=== PATIENT | female | born 1970 | race Caucasian/White ===

== ENCOUNTER → 2021-05-13 | Outpatient (CLI) | payer OTHER ==
[2016-03-14 21:15] VITALS: BP 134/73
[~2021-05-13] MED LIST: CRESTOR10 MG PO; LEVO25TA55 PO; MAGN400C PO; MONT10TA80 PO
--- NOTE | 2021-05-14 13:15 | CARD ---
MR#: [id number] Date of Study: 05/13/2021 Ordering Physician: ARIADNA HIDALGO, Referring Physician: ARIADNA HIDALGO, Tech: Deangelo Johns [facility] APPROVED REPORT EXAM: Two-dimensional and M-mode echocardiogram with Doppler and color Doppler. Other Information Quality : AverageAverageHR: 70bpm Rhythm : NSR INDICATION Palpitations PSVT RISK FACTORS Obesity 2D DIMENSIONS Left Atrium(2D)3.9 (1.6-4.0cm)IVSd0.9 (0.7-1.1cm) Aortic Root(2D)3.1 (2.0-3.7cm)LVDd4.7 (3.9-5.9cm) LVOT Diameter2.0 (1.8-2.4cm)PWd0.9 (0.7-1.1cm) LVDs2.6 (2.5-4.0cm)FS (%) 46.0 % SV80.8 ml Aortic Valve AoV Peak Kin.125.0cm/sAoV VTI28.5cm AO Peak GR.6.2mmHgLVOT Peak Kin.103.9cm/s LVOT VTI 20.69cmAO Mean GR.4mmHg KHANG (VMAX)2.60dm2SFD (VTI)2.34cm2 Mitral Valve MV E Itwaaglc10.2cm/sMV E Peak Gr.6mmHg MV DECEL [id number] A Xfvwazpx69.5cm/s MV E Mean Gr.2mmHgE/A Ratio1.3 Pulmonary Valve PV Peak Mssxaswd63.3cm/sPV Peak Grad.3mmHg Tricuspid Valve TR P. Gtfwxehh879tb/sTR Peak Gr.24mmHg Pulmonary Vein S1 Nebqnnpn69.5cm/sD2 Nizkcjso54.3cm/s LEFT VENTRICLE The left ventricle is normal size. There is normal left ventricular wall thickness. The left ventricu lar systolic function is normal and the ejection fraction is within normal range. LV ejection fractio n of 55 to 60%. There is normal LV segmental wall motion. The left ventricular diastolic function and filling is normal for age. No left ventricle thrombus noted on this study. There is no ventricular s eptal defect visualized. There is no left ventricular aneurysm. There is no mass noted in the left ve ntricle. RIGHT VENTRICLE The right ventricle is normal size. There is normal right ventricular wall thickness. The right ventr icular systolic function is normal. ATRIA The left atrium size is normal. The right atrium size is normal. The interatrial septum is intact wit h no evidence for an atrial septal defect or patent foramen ovale as noted on 2-D or Doppler imaging. AORTIC VALVE The aortic valve is normal in structure and function. Doppler and Color Flow revealed no significant aortic regurgitation. There is no significant aortic valvular stenosis. There is no aortic valvular v egetation. MITRAL VALVE The mitral valve is mildly thickened. There is no evidence of mitral valve prolapse. There is no mitr al valve stenosis. Doppler and Color Flow revealed no mitral valve regurgitation noted. TRICUSPID VALVE The tricuspid valve is normal in structure and function. Doppler and Color Flow revealed trace tricus pid regurgitation. There is no tricuspid valve prolapse or vegetation. There is no tricuspid valve st enosis. PULMONIC VALVE The pulmonary valve is normal in structure and function. Doppler and Color Flow revealed no pulmonic valvular regurgitation. There is no pulmonic valvular stenosis. GREAT VESSELS The aortic root is normal in size. The ascending aorta is normal in size. The pulmonary artery is nor mal. The IVC is normal in size and collapses >50% with inspiration. PERICARDIAL EFFUSION There is no pleural effusion. There is no evidence of significant pericardial effusion. Critical Notification Critical Value: No <Conclusion> The left ventricular systolic function is normal and the ejection fraction is within normal range. LV ejection fraction of 55 to 60%. There is normal LV segmental wall motion. Doppler and Color Flow revealed no significant aortic regurgitation. There is no significant aortic valvular stenosis. Doppler and Color Flow revealed no mitral valve regurgitation noted. Doppler and Color Flow revealed trace tricuspid regurgitation. Signed by : Carlos Manuel Escobar MD Electronically Approved : 05/14/2021 13:14:17
== END ==
LOC: ECHO 09:00
PROVIDERS: ATTEND Internal Medicine Cardiovascular Disease
DX: I34.0 Nonrheumatic mitral (valve) insufficiency (principal); I47.1 Supraventricular tachycardia; R00.2 Palpitations
CPT/HCPCS: 93306

== ENCOUNTER 2021-06-08 21:13 | Emergency (ER) | payer OTHER ==
[~2021-06-08] VITALS: Ht 167.6 cm; Wt 86.5 kg
--- NOTE | 2021-06-08 21:35 | PHYS DOC ---
Past History Past Medical History: Asthma, Hypothyroid Additional Past Medical Histor: SVT (LO BRAND APRN) Past Surgical History: Appendectomy, , Hysterectomy, Other (LO BRAND APRN) Alcohol Use: None Drug Use: None (LO BRAND APRN) General Adult EDM: Chief Complaint: SYNCOPE HPI: HPI: Patient is a 50-year-old female that presents today via [facility] after syncopal episode at home. Patient states she was putting up the [employer] tree and she said she started having her normal tachyarrhythmia, she then said she felt the room go black and when she woke up she was on the ground. Per EMS this was witnessed by the boyfriend, she states this has been happening on and off for couple years has only gotten to the point where she passes out in the last 3 or 4 months. Patient states she sees Dr. Albarran for her SVT about 1 month ago she states she had another syncopal episode she was switched to metoprolol by Dr. Albarran, she does have an appointment with Dr. Albarran tomorrow June, she also had an echocardiogram done recently and read by Dr. Dunham. Patient currently is in a c-collar, patient states that she has neck pain and head pain from her fall. (LO BRAND APRN) Review of Systems: Review of Systems: Constitutional: Denies fever or chills Eyes: Denies change in visual acuity HENT: Denies nasal congestion or sore throat Respiratory: Denies cough or shortness of breath Cardiovascular: Syncopal episode GI: Denies abdominal pain, nausea, vomiting, bloody stools or diarrhea : Denies dysuria Musculoskeletal: Neck pain Integument: Denies rash Neurologic: Denies headache, focal weakness or sensory changes Endocrine: Denies polyuria or polydipsia Lymphatic: Denies swollen glands Psychiatric: Denies depression or anxiety (LO BRAND APRN) Allergies: Allergies: Allergies Coded Allergies Type Severity Reaction Last Updated Verified Iodine and Iodide Containing Produc Allergy Intermediate Hives 06/01/14 No morphine Allergy Intermediate Hives 06/01/14 No nalbuphine Allergy Intermediate Hives 06/01/14 No (LO BRAND APRN) Physical Exam: PE: Constitutional: Well developed, well nourished, no acute distress, non-toxic appearance. [] HENT: Normocephalic, atraumatic, bilateral external ears normal, oropharynx moist, no oral exudates, nose normal. [] Eyes: PERRLA, EOMI, conjunctiva normal, no discharge. [] Neck: Normal range of motion, no tenderness, supple, no stridor, no midline tenderness noted with palpation c-collar was placed back on [] Cardiovascular:Heart rate regular rhythm, no murmur [] Lungs & Thorax: Bilateral breath sounds clear to auscultation [] Abdomen: Bowel sounds normal, soft, no tenderness, no masses, no pulsatile masses. [] Skin: Warm, dry, no erythema, no rash. [] Back: No tenderness, no CVA tenderness. [] Extremities: No tenderness, no cyanosis, no clubbing, ROM intact, no edema. [] Neurologic: Alert and oriented X 3, normal motor function, normal sensory function, no focal deficits noted. [] Psychologic: Affect normal, judgement normal, mood normal. [] (LO BRAND CUSTOMS COMPLIANCE SPECIALIST) EKG: EKG: EKG done at [address] Dean at 2136 no STEMI interpretation sinus rhythm at a rate of 76 [place] interval 156 ms with a QT interval of 459 ms [] (LO BRAND APRN) Radiology/Procedures: Radiology/Procedures: [] (LO BRAND APRN) Heart Score: C/O Chest Pain: N/A Risk Factors: Risk Factors: DM, Current or recent (<one month) smoker, HTN, HLP, family history of CAD, obesity. Risk Scores: Score 0 - 3: 2.5% MACE over next 6 weeks - Discharge Home Score 4 - 6: 20.3% MACE over next 6 weeks - Admit for Clinical Observation Score 7 - 10: 72.7% MACE over next 6 weeks - Early Invasive Strategies (LO BRAND APRN) C/O Chest Pain: No (EDDIE DEAN MD) Course & Med Decision Making: Course & Med Decision Making Pertinent Labs and Imaging studies reviewed. (See chart for details) [address] Dean. (LO BRAND APRN) Course & Med Decision Making Patient care handed off to me at checkout pending imaging. Patient alert and oriented no acute distress with normal vital signs. Laboratory analysis not concerning. EKG and troponin not concerning. Imaging of the head and C-spine not concerning. Patient remained asymptomatic in the ED. Discussed all findings with patient and family advised to follow-up in the morning with primary care physician and pediatrics physician to discuss ED visit and set up immediate follow-up. Gave strict return precautions to the ED. Advised to stay well- hydrated and eat at least 3 nutritious meals a day. Patient grateful, verbalized understanding agree with plan of discharge. (EDDIE DEAN MD) Dragon Disclaimer: Dragon Disclaimer: This electronic medical record was generated, in whole or in part, using a voice recognition dictation system. (LO BRAND APRN) Departure Departure: Referrals: KRISTYN DENG (PCP) LO BRAND APRN Jun 08, 2021 21:35 EDDIE DEAN MD Jun 08, 2021 23:09
--- NOTE | 2021-06-08 22:05 | EKG ---
[address] [address] Test Date: 2021-06-08 Test Time: 21:33:23 Pat Name: EDGAR RAMIREZ Department: Room: Gender: F Market Master: : 1970 Requested By: LO BRAND Order Number: [id number] Reading MD: Shakir Albarran MD Measurements Intervals Baker Rate: 76 P: 56 TN: 156 QRS: 32 QRSD: 88 T: 25 QT: 404 QTc: 459 Interpretive Statements SINUS RHYTHM INCOMPLETE RIGHT BUNDLE BRANCH BLOCK Electronically Signed On 06-09-2021 9:15:36 PLUG DRILL OPERATOR by Shakir Albarran MD
[2021-06-08 22:23] LABS: CALCIUM 8.7 mg/dL (8.5-10.1); CREATININE 0.7 mg/dL (0.6-1.0); GFR 89.3; POTASSIUM 4.1 mmol/L (3.5-5.1)
[2021-06-08 22:24] LABS: MAGNESIUM 2.1 mg/dL (1.8-2.4)
--- NOTE | 2021-06-08 23:06 | RAD ---
Site ID: [id number] EXAMINATION: CT HEAD AND C-SPINE WO. TECHNIQUE: Noncontrast axial images of the brain and cervical spine with coronal and sagittal recon structions were obtained. One or more of the following radiation dose reduction techniques was used: automated exposure control , adjustment of mA and/or KV according to patient size, and/or utilization of iterative reconstructio n technique. HISTORY: 50 years Female Reason: neck pain after fall / . FINDINGS: CT HEAD: There is no intracranial hemorrhage, edema or mass effect. The brain parenchyma appears unremarkable . No hydrocephalus. The visualized portions of the orbits and paranasal sinuses appear unremarkable. CT cervical spine: The alignment of the posterior spinal line satisfactory. The vertebral body heights are preserved. Disc heights are also preserved. There is a slight the left lateral flexion of the cervical spine which could be positional. There is no widening of the predent al space. The alignment at the facet joints is satisfactory. No cervical spine fracture is seen. No s ignificant the osteophyte formation or degenerative changes identified. The paraspinal soft tissues demonstrate mild lymph node enlargement of uncertain etiology. IMPRESSION: CT HEAD: Unremarkable exam. CT cervical spine: 1. No fracture seen. 2. The soft tissues demonstrate mild cervical chain lymphadenopathy is of uncertain etiology. Electronically signed by: Bairon Jauregui MD (06/08/2021 11:03 PM) [id number]
[2021-06-08 23:22] VITALS: BP 136/74
== END 2021-06-08 23:30 | disposition home or self-care (01) ==
LOC: ER 21:13
DX: R55 Syncope and collapse (principal); M54.2 Cervicalgia; R51.9 Headache, unspecified; J45.909 Unspecified asthma, uncomplicated; E03.9 Hypothyroidism, unspecified; Z88.8 Allergy status to other drugs, medicaments and biological substances; Z88.5 Allergy status to narcotic agent; W18.39XA Other fall on same level, initial encounter; Y93.89 Activity, other specified; Y92.89 Other specified places as the place of occurrence of the external cause; Y99.8 Other external cause status
CPT/HCPCS: 36415; 70450; 72125; 80048; 83735; 84484; 93005; 99284; 99285

== ENCOUNTER 2021-08-25 18:50 | Emergency (ER) | payer OTHER ==
[~2021-08-25] VITALS: Ht 167.6 cm; Wt 90.0 kg
[2021-08-25 19:00] VITALS: BP 128/70
[2021-08-25] MEDS ORDERED: DIPHTH,PERTUSS(ACELL),TET TOX 0.5 ML DISP.SYRIN. VAX IM ONE (19:45)
[2021-08-25] MEDS ORDERED: silver sulfADIAZINE 1% CREAM 50GM JAR. TP ONE (19:45)
--- NOTE | 2021-08-25 20:19 | PHYS DOC ---
Past History Past Medical History: Asthma, Hypothyroid Additional Past Medical Histor: SVT (BARRY TORRES APRN) Past Surgical History: Appendectomy, , Hysterectomy, Other (BARRY TORRES APRN) Alcohol Use: None Drug Use: None (BARRY TORRES APRN) Adult General Chief Complaint Chief Complaint: BURN/SMOKE INHALATION HPI HPI Patient is a 50-year-old female who presents to the emergency department reporting burning sensation in the bilateral palms of hands. Patient states approximately 2 hours ago she was using readymade grout for a project at home, states she was wearing gloves however her gloves were torn, patient noticed rayne rtly after applying grout both hands became reddened with burning sensation and itching. Patient reports she sustained minor abrasions to her fingertips while working with the grout and tile material, patient reports her last tetanus immunization was greater than 5 years ago. Patient denies taking pain medications prior to arrival to the emergency department. Patient reports a 8 out of 10 burning pain. Patient states she did wash her hands at home to remove the grout material prior to arrival to the emergency department. Patient denies other physical complaints or physical concerns. (BARRY TORRES APRN) Review of Systems Review of Systems 14 body systems of review of systems have been reviewed. See HPI for pertinent positives and negative responses, otherwise all other systems are negative, nonpertinent or noncontributory. Constitutional: Negative except as outlined in HPI above. Skin: Negative except as outlined in HPI above. Eyes: Negative except as outlined in HPI above. HENT: Negative except as outlined in HPI above. Respiratory: Negative except as outlined in HPI above. Cardiovascular: Negative except as outlined in HPI above. GI: Negative except as outlined in HPI above. : Negative except as outlined in HPI above. Musculoskeletal: Negative except as outlined in HPI above. Integument: Negative except as outlined in HPI above. Neurologic: Negative except as outlined in HPI above. Endocrine: Negative except as outlined in HPI above. Lymphatic: Negative except as outlined in HPI above. Psychiatric: Negative except as outlined in HPI above. (BARRY TORRES APRN) Current Medications Current Medications Current Medications Medications (Trade) Dose Ordered Sig/Domenica Start Time Stop Time Status Last Admin Dose Admin Diphtheria/ Tetanus/Acell Pertussis (Boostrix) 0.5 ml ONCE ONCE 2/21/22 19:45 08/25/21 19:46 UNV 08/25/21 20:07 0.5 ML Silver Sulfadiazine (Silvadene) 1 chen 1X ONCE 08/25/21 19:45 08/25/21 19:46 UNV 08/25/21 20:05 1 CHEN (BARRY TORRES APRN) Allergies Allergies Allergies Coded Allergies Type Severity Reaction Last Updated Verified Iodine and Iodide Containing Produc Allergy Intermediate Hives 06/01/14 No morphine Allergy Intermediate Hives 06/01/14 No nalbuphine Allergy Intermediate Hives 06/01/14 No povidone-iodine Allergy Unknown 08/25/21 Yes (BARRY TORRES APRN) Physical Exam Physical Exam Constitutional: Well developed, well nourished, no acute distress, non-toxic appearance. 51-year-old female in no apparent distress. HENT: Normocephalic, atraumatic. Eyes: Conjunctiva normal, no discharge. Neck: Normal range of motion, no stridor. Cardiovascular: No cyanosis appreciated, distal cap refill less than 2 seconds. Lungs & Thorax: Patient is in no respiratory distress, no audible adventitious lung sounds appreciated. Abdomen: Nontender, no abnormalities noted. Skin: Warm, dry, no erythema, no rash. See extremity note for focused skin examination Back: No tenderness, no deformities. Extremities: No tenderness, no cyanosis, no clubbing, ROM intact, no edema. Bilateral palms of hands erythematous without swelling or induration, minor abrasions to fingertips without signs symptoms of infectious process, distal cap refill bilateral upper extremities less than 2 seconds, 2+ bilateral radial pulses, equal instructional coach strength, full range of motion to all digits of both hands. Neurologic: Alert and oriented X 3, normal motor function, normal sensory function, no focal deficits noted. Psychologic: Affect normal, judgement normal, mood normal. (BARRY TORRES APRN) EKG EKG [] (BARRY TORRES APRN) Radiology/Procedures Radiology/Procedures [] (BARRY TORRES APRN) Heart Score C/O Chest Pain: No Risk Factors: Risk Factors: DM, Current or recent (<one month) smoker, HTN, HLP, family history of CAD, obesity. Risk Scores: Risk Factors: DM, Current or recent (<one month) smoker, HTN, HLP, family history of CAD, obesity. (BARRY TORRES APRN) Course & Med Decision Making Course & Med Decision Making Pertinent Labs and Imaging studies reviewed. (See chart for details) 50-year-old female, vital signs reviewed, presents to the emergency department concerning burning sensation to both hands after applying grout material during a home project. Bilateral hands are erythematous, will wash with copious amounts of tap water under sink, bring patient's tetanus immunization up-to-date with Tdap medication today in the emergency department. Will give p.o. pain medication. Will apply topical Silvadene ointment and dressings to hands after washing. 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 pain medications, discussed safety when using gout materials at home to include adequate gloving of hands. Discussed with home care of haro to hands, strict follow-up with primary care or outpatient burn unit, patient gave verbal understanding of and is amenable to ED discharge planning. Discussed with the patient all findings and diagnostic testing as well as the need to follow-up with their primary care provider for further evaluation and treatment or return to the ED if any new or worsening symptoms. Strict return precautions were also discussed at length, the patient voiced understanding and agreement with the discharge planning. The patient was nontoxic in appearance, in no apparent distress, and hemodynamically stable at the time of disposition. (BARRY TORRES APRN) Dragon Disclaimer Dragon Disclaimer This electronic medical record was generated, in whole or in part, using a voice recognition dictation system. (BARRY TORRES APRN) Departure Departure: Impression: Primary Impression: Chemical burn of hand Disposition: HOME / SELF CARE / HOMELESS Condition: GOOD Referrals: KRISTYN DENG (PCP) Patient Instructions: Chemical Burn Additional Instructions: You were seen today in the emergency department for a chemical burn of your hands after being exposed to premixed grout. Your hands were irrigated copiously with tap water. You were then treated with Silvadene ointment to help prevent any infection. Please apply the Silvadene ointment twice a day for the next 5 days. Your tetanus immunization was brought up-to-date today in the emergency department with a medication called Tdap, please update your immunization records accordingly. You may use [id number] Tylenol or Motrin for returning discomfort of your hand. Please use protective rubber gloves when mixing or applying grout in the future. Return to the emergency department for worsening symptoms or other concerns. Thank you for visiting our Emergency Department. It was a pleasure taking care of you today in the emergency department and we appreciate you trusting us with your care. If any additional problems come up don't hesitate to return to visit us. Please follow up with your primary care provider so they can plan additional care if needed and know about the problem that you had. If symptoms worsen come back to the Emergency Department. Any concerning symptoms that start such as chest pain, shortness of air, weakness or numbness on one side of the body, running high fevers or any other concerning symptoms return to the ER. Scripts Hydrocodone Bit/Acetaminophen (HYDROCODONE-APAP 5-325 ) 1 Each Tablet 1 TAB PO PRN Q6HRS PRN for SEVERE PAIN 7-10, #6 TAB 0 Refills Prov: BARRY TORRES APRN 08/25/21 Attending Signature Attending Signature I have participated in the care of this patient and I have reviewed and agree with all pertinent clinical information above including history, exam, and recommendations. (TONY ZAFAR MD) Dragon Disclaimer This chart was dictated in whole or in part using Voice Recognition software in a busy, high-work load, and often noisy Emergency Department environment. It may contain unintended and wholly unrecognized errors or omissions. (TONY ZAFAR MD) Problem Qualifiers Primary Impression: Chemical burn of hand Encounter type: initial encounter Laterality: unspecified laterality Corrosion degree: first degree Qualified Codes: T23.509A - Corrosion of first degree of unspecified hand, unspecified site, initial encounter BARRY TORRES AIR BAG STRIPPER Aug 25, 2021 20:19 TONY ZAFAR MD Aug 30, 2021 10:43
[2021-08-25] MEDS ORDERED: HYDR-2155 PO (20:24)
[2021-08-25] MEDS ORDERED: HYDROcodone/APAP 5/325MG 1 TAB TABLET PO ONE (20:30)
== END 2021-08-25 20:35 | disposition home or self-care (01) ==
LOC: ER 18:50
DX: T23.552A Corrosion of first degree of left palm, initial encounter (principal); T23.551A Corrosion of first degree of right palm, initial encounter; J45.909 Unspecified asthma, uncomplicated; E03.9 Hypothyroidism, unspecified; Z88.8 Allergy status to other drugs, medicaments and biological substances; Z88.5 Allergy status to narcotic agent; Y93.89 Activity, other specified; Y92.89 Other specified places as the place of occurrence of the external cause; Y99.8 Other external cause status
CPT/HCPCS: 16000; 90471; 90715; 99283